=== PATIENT | female | born 1980 | race Two or more races ===

== ENCOUNTER → 2024-09-17 | Outpatient (CLI) | payer OTHER, SELFPAY ==
--- NOTE | 2024-09-17 16:43 | XR_ITS ---
Examination: Lumbar spine 3 views TECHNIQUE: Standing AP lateral coned lateral lower lumbar spine 3 views Exam date and time: September 17, 2024 1549 hours INDICATIONS: Status post lumbar surgery 8 days ago with pain radiating down the legs FINDINGS: Mild thoracolumbar dextroscoliosis which may be positional Transpedicular lumbar stabilization L4-S1 with anatomic alignment, disc spacers The disc spacer at the L4-L5 level projects 1 mm posterior to the L4 vertebral body Mild lumbar spondylosis No lumbar fracture No significant lumbar disc narrowing above the stabilization site IMPRESSION: Status post transpedicular lumbar stabilization L4-S1 with anatomic alignment
== END | disposition home or self-care (01) ==
PROVIDERS: PCP Orthopaedic Surgery Orthopaedic Surgery of the Spine; Referring Provider Orthopaedic Surgery Orthopaedic Surgery of the Spine; Visit Provider Orthopaedic Surgery Orthopaedic Surgery of the Spine
DX: M51.360 Other intervertebral disc degeneration, lumbar region with discogenic back pain only (principal); Z98.890 Other specified postprocedural states
CPT/HCPCS: 72100

== ENCOUNTER 2024-12-23 10:21 | Outpatient (RCR) | payer OTHER, SELFPAY ==
--- NOTE | 2024-12-23 10:36 | PT.OIERPT ---
PT OP Initial Eval Patient Information Outpatient Physical Therapy Treatment Date: 12/23/24 Visit Reasons: low back pain Medical Diagnosis: Z47.89 M54.51 M54.16 Treatment Dx #1: LBP Start of Care: 12/23/24 Date of Onset: 09/08/24 Smoking Status Smoking Status: Never smoker Initial Assessment Subjective: Pt is 44 yr old syriac speaking female s/p lumbar fusion of L4-S1. Pt reports pain with walking, prolonged sitting, getting OOB, bending. She had first injured the L/S in 2022 at work when she fell while moving a cart of fruit. PMH: none reported Pt goal: to walk and work without pain Objective: B LE strength: Quads: R: 3+/5, L: 3-/5 Core activation with resisted LTR in supine: 3+/5 R hip flexion: 75 deg, L: 35 deg SLR: R: 35 deg, L: unable TTP: mod/high of incision scar Gait: careful, slower Sensation: diminished of R ankle compared to L Assessment: Pt presentation consistent with referring Dx with decreased core activation and LE strength and is unable to straight leg raise on L. Pt requires skilled therapy to meet goals and has fair rehab potential. Short Term and [employer] T[employer] Goals 1. Ind with HEP 2. Improved abdominal/core activation to 4/5 3. SLR to 25 deg and hip flexion to 90 deg of L LE with no LBP 4. Decreased TTP of incision scar to min 5. Pt will ambulate community distances with <=3/10 LBP Treatment Plan ? 1. Manual therapy ? 2. Therex ? 3. Modalities as indicated, moist heat, ice, estim Frequency and Duration: 2x a week for 6 weeks plus the evaluation Certification Dates: 12/23/24 to 03/24/25 Procedure Charges OP PT Eval Mod Complex 30 minutes: Yes
== END 2024-12-28 23:59 | disposition home or self-care (01) ==
LOC: CPTX 10:21
PROVIDERS: PCP Orthopaedic Surgery Orthopaedic Surgery of the Spine; Referring Provider Orthopaedic Surgery Orthopaedic Surgery of the Spine; Visit Provider Orthopaedic Surgery Orthopaedic Surgery of the Spine
DX: M54.16 Radiculopathy, lumbar region (principal); Z98.1 Arthrodesis status
CPT/HCPCS: 97162

== ENCOUNTER 2025-01-27 10:00 | Outpatient (RCR) | payer OTHER, SELFPAY ==
--- NOTE | 2024-12-30 17:33 | PT.ODAYNRPT ---
PT Outpatient Daily Note OP Daily Note Outpatient Physical Therapy Treatment Date: 12/30/24 Visit Reasons: Low back pain Subjective: Incision scar hurts to touch Objective: See F/S for therex MT: STM scar massage light pressure on borders x5' Assessment: Pt has difficulty lifting LE's in supine R>L and hip flexion increases LBP Plan: Continue per POC Length of Time (minutes) of Treatment: 30 Minutes Procedure Charges Therapeutic Exercise 30 minutes: Yes
--- NOTE | 2025-01-04 14:38 | PT.ODAYNRPT ---
PT Outpatient Daily Note OP Daily Note Outpatient Physical Therapy Treatment Date: 01/04/25 Visit Reasons: Low back pain Subjective: Some LBP and soreness after last visit Objective: See F/S for therex MT: STM scar massage light pressure on borders x5' Assessment: Pt has difficulty lifting LE's in supine R>L and hip flexion increases LBP. Mod/high TTP of incision scar. Plan: Continue per POC Length of Time (minutes) of Treatment: 30 Minutes Procedure Charges Therapeutic Exercise 30 minutes: Yes
--- NOTE | 2025-01-06 18:00 | PT.ODAYNRPT ---
PT Outpatient Daily Note OP Daily Note Outpatient Physical Therapy Treatment Date: 01/06/25 Visit Reasons: Low back pain Subjective: Some LBP and soreness after last visit Objective: See F/S for therex Assessment: Pt has difficulty lifting LE's in supine R>L and hip flexion increases LBP. Mod/high TTP of incision scar. Plan: Continue per POC Length of Time (minutes) of Treatment: 30 Minutes Procedure Charges Therapeutic Exercise 30 minutes: Yes
--- NOTE | 2025-01-13 10:45 | PT.ODAYNRPT ---
PT Outpatient Daily Note OP Daily Note Outpatient Physical Therapy Treatment Date: 01/13/25 Visit Reasons: Low back pain Subjective: Some LBP and soreness after last visit Objective: See F/S for therex Assessment: Pt has difficulty lifting LE's in supine R>L and hip flexion increases LBP. Mod/high TTP of incision scar. Plan: Continue per POC Length of Time (minutes) of Treatment: 30 Minutes Procedure Charges Therapeutic Exercise 30 minutes: Yes
--- NOTE | 2025-01-18 11:45 | PT.ODAYNRPT ---
PT Outpatient Daily Note OP Daily Note Outpatient Physical Therapy Treatment Date: 01/18/25 Visit Reasons: Low back pain Subjective: Some LBP and soreness after last visit Objective: See F/S for therex Assessment: Improved lifting LE's in supine R>L and hip flexion. Less TTP of incision scar since last time Plan: Continue per POC Length of Time (minutes) of Treatment: 30 Minutes Procedure Charges Therapeutic Exercise 30 minutes: Yes
--- NOTE | 2025-01-20 13:04 | PT.ODAYNRPT ---
PT Outpatient Daily Note OP Daily Note Outpatient Physical Therapy Treatment Date: 01/20/25 Visit Reasons: Low back pain Subjective: Some LBP and soreness after last visit Objective: See F/S for therex MT: STM incision scar x5' with graston Assessment: Improved lifting LE's in supine R>L and hip flexion. Less TTP of incision scar since last time. Plan: Continue per POC Length of Time (minutes) of Treatment: 30 Minutes Procedure Charges Therapeutic Exercise 30 minutes: Yes
--- NOTE | 2025-01-25 18:18 | PT.ODAYNRPT ---
PT Outpatient Daily Note OP Daily Note Outpatient Physical Therapy Treatment Date: 01/25/25 Visit Reasons: Low back pain Subjective: Some LBP and soreness after last visit Objective: See F/S for therex Assessment: Improved lifting LE's in supine R>L and hip flexion. Plan: Continue per POC Length of Time (minutes) of Treatment: 30 Minutes Procedure Charges Therapeutic Exercise 30 minutes: Yes
--- NOTE | 2025-01-27 10:57 | PT.ODAYNRPT ---
PT Outpatient Daily Note OP Daily Note Outpatient Physical Therapy Treatment Date: 01/27/25 Visit Reasons: Low back pain Subjective: Some LBP and soreness after last visit attributed to the total gym partial body weight squats Objective: See F/S for therex MT: StM lumbar paraspinals x5' Assessment: Mod tissue irritability with transfers and mod TTP of scar with manual therapy Plan: Continue per POC Length of Time (minutes) of Treatment: 30 Minutes Procedure Charges Therapeutic Exercise 30 minutes: Yes
== END 2025-01-27 23:59 | disposition home or self-care (01) ==
LOC: CPTX 10:00
PROVIDERS: PCP Orthopaedic Surgery Orthopaedic Surgery of the Spine; Referring Provider Orthopaedic Surgery Orthopaedic Surgery of the Spine; Visit Provider Orthopaedic Surgery Orthopaedic Surgery of the Spine
DX: M54.16 Radiculopathy, lumbar region (principal); Z98.1 Arthrodesis status
CPT/HCPCS: 97110

== ENCOUNTER 2025-02-09 10:00 | Outpatient (RCR) | payer OTHER, SELFPAY ==
--- NOTE | 2025-02-02 11:24 | PT.ODAYNRPT ---
PT Outpatient Daily Note OP Daily Note Outpatient Physical Therapy Treatment Date: 02/02/25 Visit Reasons: low back pain Subjective: Pt reports back pain is a little better. Objective: Please see flow sheet for ther ex list. Assessment: Pt ambulates with decrease hal and poor arm swing. Plan: Continue with pOC. Length of Time (minutes) of Treatment: 30 Minutes Procedure Charges Therapeutic Exercise 30 minutes: Yes
--- NOTE | 2025-02-04 11:37 | PT.ODAYNRPT ---
PT Outpatient Daily Note OP Daily Note Outpatient Physical Therapy Treatment Date: 02/04/25 Visit Reasons: low back pain Subjective: Pt reports back is feeling worse today, not sure shy. Objective: Please see flow sheet for ther ex list. Assessment: Regressed interventions to accommodate reported pain. Plan: Pt has one visit left. Length of Time (minutes) of Treatment: 30 Minutes Procedure Charges Therapeutic Exercise 30 minutes: Yes
--- NOTE | 2025-02-09 13:27 | PT.ODS1RPT ---
PT OP Progress/Discharge Note Date of Service: 02/09/25 Progress Note/DC Note Progress Note/Discharge Note: Progress Note Patient Information Visit Reasons: low back pain Service Continue Service or Discharge: Continue Service Status Subjective: Overall better with improved LE strength and less LBP since starting therapy. Objective: SLR: R: 35 deg, L: 30 deg TTP: incision scar min Abdominal core activation: 01/02 Gait: still careful but faster gait speed than when she started therapy Assessment: Pt has attended / visits eval +11 Rx sessions with good progress with therapy goals. The scar is less TTP from mod to minimum and she is doing HEP to meet those goals. Pt can straight leg raise higher to meet the goal of 25 degs B but L LE causes LBP. Plan: Pt said provider ordered more therapy during consultation yesterday. Once we receive authorization we can continue. Procedure Charges Therapeutic Exercise 30 minutes: Yes
== END 2025-02-27 23:59 | disposition home or self-care (01) ==
LOC: CPTX 10:00
PROVIDERS: PCP Orthopaedic Surgery Orthopaedic Surgery of the Spine; Referring Provider Orthopaedic Surgery Orthopaedic Surgery of the Spine; Visit Provider Orthopaedic Surgery Orthopaedic Surgery of the Spine
DX: M54.16 Radiculopathy, lumbar region (principal); Z98.1 Arthrodesis status
CPT/HCPCS: 97110

== ENCOUNTER → 2025-04-19 | Outpatient (CLI) | payer OTHER, SELFPAY ==
--- NOTE | 2025-04-19 10:00 | XR_ITS ---
Examination: MRI cervical spine without intravenous contrast Date and time of exam: April 19, 2025 1142 hours INDICATIONS: Patient fell February 2023 with injury to the neck, persistent neck pain Technique: Multiple axial and sagittal sections of the cervical spine to been obtained. T2 weighted sagittal sections, TR 3, 270, TE 117 T1-weighted sagittal sections, TR 500, TE 11 T1-weighted axial sections, TR 607, TE 12, axial sections TR 18, TE 27 and T2 weighted transverse sections, TR 3920, TE 122. Findings: Satisfactory alignment cervical vertebral bodies No cervical fracture Intact odontoid Diffuse cervical disc desiccation No localized enlargement cervical cord C4-C5 moderate left neural foraminal stenosis C5-C6 moderate left neural foraminal stenosis IMPRESSION: No cervical fracture No focal cervical disc protrusion C4-C5, C5-C6 moderate left neural foraminal stenosis
--- NOTE | 2025-04-19 10:30 | XR_ITS ---
Examination: MRI lumbar spine without contrast Date and time of exam: April 19, 2025 1142 hours INDICATIONS: Patient fell February 2023 with low back pain radiating to legs numbness in legs Technique: Multiple MRI axial and sagittal sections lumbar spine. Sagittal T2-weighted images, TR 3500, TE 118 T1 weighted transverse sections, TR 688 T8.5, T2-weighted sagittal sections T1 weighted sagittal sections TR 621, TE 30 T2 axial sections, TR 4, 190, TE 84. Findings: Adequate alignment lumbar vertebral bodies Transpedicular lumbar fusion L4-S1 with anatomic alignment No lumbar fracture L5-S1 no disc protrusion L4-L5 no disc protrusion L3-L4 no disc protrusion L2-L3 no disc protrusion L1-L2 no disc protrusion IMPRESSION: Transpedicular lumbar fusion L4-S1 with anatomic alignment No focal lumbar disc protrusion
== END | disposition home or self-care (01) ==
PROVIDERS: PCP Family Medicine
DX: M48.02 Spinal stenosis, cervical region (principal); Z98.890 Other specified postprocedural states
CPT/HCPCS: 72141; 72148